=== PATIENT | male | born 1990 | race Caucasian/White ===

== ENCOUNTER 2016-09-01 04:14 | Emergency (ER) | payer BC ==
[~2016-09-01] VITALS: Ht 180.3 cm; Wt 79.4 kg
[2016-09-01 04:22] VITALS: TEMP 36.7; Ht 180.3 cm; Wt 79.4 kg
--- NOTE | 2016-09-01 04:42 | EMERGENCY ROOM VISIT NOTE ---
History Report prepared by [employer]: Juan Brown Under the Supervision of: Dr. Rafael Ybarra D.O. First contact with patient: 04:31 Chief Complaint: ABDOMINAL PAIN Stated Complaint: INTENSE STOMACH PAIN AND NAUSEA X 10HRS,MINOR CP History of Present Illness The patient is a 26 year old male who presents to the Emergency Room with complaints of waxing & waning abdominal pain since 1700 last night. The pain is localized to the center of the abdomen and does not radiate to his back. The pain is currently rated 4 or 5/10 in severity. He also noticed some mild chest pain when he woke up this morning. The patient has also had diarrhea. He denies any fevers. He was dry heaving but has not actually vomited. He denies any sick contacts. He has never had surgery of the abdomen. Source of History: patient Onset: 1700 last night Position: abdomen (center) Symptom Intensity: 4 or 5/10 Timing: waxes/wanes Associated Symptoms: + chest pain, + diarrhea, No fevers, No vomiting Review of Systems See HPI for pertinent positives and negatives. A total of ten systems were reviewed and were otherwise negative. Past Medical & Surgical Medical Problems: (1) Acute sinusitis Family History No pertinent family history Social History Smoking Status: Never Smoker Current/Historical Medications No Active Prescriptions or Reported Meds Allergies Coded Allergies: Penicillins (Unverified Allergy, Mild, HIVES, 10/29/10) Uncoded Allergies: AMOXICILLIN--HIVES (Allergy, Unknown, 05/25/03) Physical Exam Vital Signs Date Time Temp Pulse Resp B/P Pulse Ox O2 Delivery O2 Flow Rate FiO2 09/01/16 06:06 82 21 136/77 98 Room Air 09/01/16 05:01 70 09/01/16 04:22 36.7 67 20 155/82 99 Room Air Physical Exam GENERAL: Awake, alert, well-appearing, in no distress HENT: Normocephalic, atraumatic. Oropharynx unremarkable. EYES: Normal conjunctiva. Sclera non-icteric. NECK: Supple. No nuchal rigidity. FROM. No JVD. RESPIRATORY: Clear to auscultation. CARDIAC: Regular rate, normal rhythm. Extremities warm and well perfused. Pulses equal. ABDOMEN: Soft, non-distended. No tenderness to palpation. No rebound or guarding. No masses. RECTAL: Deferred. MUSCULOSKELETAL: Chest examination reveals no tenderness. The back is symmetrical on inspection without obvious abnormality. There is no CVA tenderness to palpation. No joint edema. LOWER EXTREMITIES: Calves are equal size bilaterally and non-tender. No edema. No discoloration. NEURO: Normal sensorium. No sensory or motor deficits noted. SKIN: No rash or jaundice noted. Medical Decision & Procedures ER Provider Diagnostic Interpretation: CT results as stated below per my review and radiologist interpretation. CT ABDOMEN & PELVIS: There is proximal gastric wall thickening which may represent gastritis. There is no evidence of bowel obstruction. The visualized appendix is normal. Liver gallbladder spleen pancreas kidneys and adrenal glands are normal. Urinary bladder unremarkable. There are no acute osseous findings. Radiologist: Hardik Bautista MD. Laboratory Results 09/01/16 04:50 Red Blood Count 4.73, Mean Corpuscular Volume 88.8, Mean Corpuscular Hemoglobin 31.7, Mean Corpuscular Hemoglobin Concent 35.7, Mean Platelet Volume 9.7, Neutrophils (%) (Auto) 50.9, Lymphocytes (%) (Auto) 37.3, Monocytes (%) (Auto) 7.3, Eosinophils (%) (Auto) 3.6, Basophils (%) (Auto) 0.7, Neutrophils # (Auto) 2.79, Lymphocytes # (Auto) 2.05, Monocytes # (Auto) 0.40, Eosinophils # (Auto) 0.20, Basophils # (Auto) 0.04 09/01/16 04:50 Test 09/01/16 04:50 09/01/16 05:32 White Blood Count 5.49 K/uL (4.8-10.8) Red Blood Count 4.73 M/uL (4.7-6.1) Hemoglobin 15.0 g/dL (14.0-18.0) Hematocrit 42.0 % (42-52) Mean Corpuscular Volume 88.8 fL (80-100) Mean Corpuscular Hemoglobin 31.7 pg (25-34) Mean Corpuscular Hemoglobin Concent 35.7 g/dl (32-36) Platelet Count 225 K/uL (130-400) Mean Platelet Volume 9.7 fL (7.4-10.4) Neutrophils (%) (Auto) 50.9 % Lymphocytes (%) (Auto) 37.3 % Monocytes (%) (Auto) 7.3 % Eosinophils (%) (Auto) 3.6 % Basophils (%) (Auto) 0.7 % Neutrophils # (Auto) 2.79 K/uL (1.4-6.5) Lymphocytes # (Auto) 2.05 K/uL (1.2-3.4) Monocytes # (Auto) 0.40 K/uL (0.11-0.59) Eosinophils # (Auto) 0.20 K/uL (0-0.5) Basophils # (Auto) 0.04 K/uL (0-0.2) RDW Standard Deviation 39.8 fL (36.4-46.3) RDW Coefficient of Variation 12.3 % (11.5-14.5) Immature Granulocyte % (Auto) 0.2 % Immature Granulocyte # (Auto) 0.01 K/uL (0.00-0.02) Anion Gap 6.0 mmol/L (3-11) Est Creatinine Clear Calc Drug Dose 107.4 ml/min Estimated GFR () 106.1 Estimated GFR (Non- 91.5 BUN/Creatinine Ratio 18.1 (10-20) Calcium Level 9.0 mg/dl (8.5-10.1) Total Bilirubin 0.5 mg/dl (0.2-1) Direct Bilirubin 0.2 mg/dl (0-0.2) Aspartate Amino Transf (AST/SGOT) 18 U/L (15-37) Alanine Aminotransferase (ALT/SGPT) 23 U/L (12-78) Alkaline Phosphatase 41 U/L (45-117) Total Protein 7.1 gm/dl (6.4-8.2) Albumin 4.0 gm/dl (3.4-5.0) Lipase 161 U/L (73-393) Urine Color YELLOW Urine Appearance CLEAR (CLEAR) Urine pH 5.5 (4.5-7.5) Urine Specific [place] 1.022 (1.000-1.030) Urine Protein NEG (NEG) Urine Glucose (UA) NEG (NEG) Urine Ketones NEG (NEG) Urine Occult Blood NEG (NEG) Urine Nitrite NEG (NEG) Urine Bilirubin NEG (NEG) Urine Urobilinogen NEG (NEG) Urine Leukocyte Esterase NEG (NEG) Laboratory results reviewed by me Medications Administered Medications (Trade) Dose Ordered Sig/Dariana Route Start Time Stop Time Status Last Admin Dose Admin Sodium Chloride (Nss 1000ml) 1,000 ml @ 999 mls/hr Q1H1M IV 09/01/16 04:45 10/01/16 04:44 09/01/16 05:46 999 MLS/HR Ondansetron HCl (Zofran Inj) 4 mg NOW STAT IV 09/01/16 04:51 09/01/16 04:53 DC 09/01/16 05:01 4 MG Morphine Sulfate (MoRPHine SULFATE INJ) 4 mg NOW STAT IV 09/01/16 04:51 09/01/16 04:53 DC 09/01/16 05:01 4 MG ED Course 0435: The patient was evaluated in room B2. A complete history and physical exam was performed. 0445: NSS 1000 ml @ 999 mls/hr. 0451: Morphine Sulfate 4 mg IV, Zofran 4 mg IV. 0635: Reassessed the patient. Discussed the findings with him. He verbalized understanding of the discharge instructions. The patient is ready for discharge. Medical Decision Differential diagnosis includes gastritis, gastroenteritis, biliary colic, pancreatitis, early appendicitis, colitis. Impression Primary Impression: Abdominal pain Scribe Attestation The scribe's documentation has been prepared under my direction and personally reviewed by me in its entirety. I confirm that the note above accurately reflects all work, treatment, procedures, and medical decision making performed by me. Departure Information Dispostion Home / Self-Care Prescriptions No Active Prescriptions or Reported Meds Referrals No Doctor, Assigned (PCP) Forms HOME CARE DOCUMENTATION FORM, IMPORTANT VISIT INFORMATION Patient Instructions Abdominal Pain, [facility] Problem Qualifiers Primary Impression: Abdominal pain Abdominal location: generalized Qualified Codes: R10.84 - Generalized abdominal pain
[2016-09-01] MEDS ORDERED: MoRPHine SULFATE 4 MG/ML 1 ML CARP\\VIAL IV STA (04:51)
[2016-09-01] MEDS ORDERED: ONDANSETRON INJ 2 MG/ML 2 ML VIAL IV STA (04:51)
[2016-09-01] MEDS: SODIUM CHLORIDE 0.9% 1000ML 1,000 ML IV SCH ×2 (04:57→05:46)
[2016-09-01] MEDS ORDERED: OPTIRAY 320 IV PRN (05:00)
[2016-09-01 05:06] LABS: BASO % 0.7 %; BASO ABS # 0.04 K/uL (0-0.2); COMPLETE YES; EOS % 3.6 %; IG% 0.2 %; LYMPH % 37.3 %; LYMPH ABS # 2.05 K/uL (1.2-3.4); MEAN CELL VOLUME 88.8 fL (80-100); MEAN CORPUSCULAR HEMOGLOBIN 31.7 pg (25-34); MEAN CORPUSCULAR HGB CONC 35.7 g/dl (32-36); MEAN PLATELET VOLUME 9.7 fL (7.4-10.4); MONO % 7.3 %; NEUT % 50.9 %; PLATELET COUNT 225 K/uL (130-400); RED BLOOD COUNT 4.73 M/uL (4.7-6.1); WHITE BLOOD COUNT 5.49 K/uL (4.8-10.8)
[2016-09-01 05:25] LABS: BUN/CREATININE RATIO 18.1 (10-20); CREATININE 1.1 mg/dl (0.60-1.40)
[2016-09-01 05:51] LABS: URINE APPEARANCE CLEAR (CLEAR); URINE BILIRUBIN NEG (NEG); URINE COLOR YELLOW; URINE NITRITE NEG (NEG); URINE PH 5.5 (4.5-7.5); URINE SPECIFIC GRAVITY 1.022 (1.000-1.030); UROBILINOGEN NEG (NEG); ZZUR CULT IF INDIC CLEAN CATCH NO
[2016-09-01 06:01] LABS: MANUAL MICROSCOPIC REQUIRED? NO; REVIEW REQ? NO
[2016-09-01 06:52] VITALS: BP 141/51; PULSE 67; O2SAT 98
--- NOTE | 2016-09-01 08:05 | DIAGNOSTIC IMAGING REPORT ---
ABDOMEN AND PELVIS CT WITH IV CONTRAST CT DOSE: 292.52 mGy.cm HISTORY: Generalized abdominal pain. Nausea. TECHNIQUE: Multiaxial CT images of the abdomen and pelvis were performed following the use of intravenous contrast. COMPARISON STUDY: None. FINDINGS: The lung bases are clear. The liver, gallbladder, pancreas, kidneys, and adrenal glands are within normal limits. No bowel wall thickening or obstruction. The pelvic organs are unremarkable. No suspicious lytic or blastic osseous lesions. Proximal gastric wall thickening is likely due to underdistention. The spleen is mildly enlarged measuring 13 cm in length. Normal appendix. IMPRESSION: 1. No bowel wall thickening or obstruction. 2. Normal appendix. 3. Mild splenomegaly. Electronically signed by: Solo Welch M.D. 09/01/2016 8:03 AM Dictated Date/Time: 09/01/2016 8:00 AM
== END 2016-09-01 06:52 | disposition home or self-care (01) ==
LOC: C.EDB 04:15
DX: R10.84 Generalized abdominal pain (principal)